=== PATIENT | female | born 1985 | race Two or more races ===

== ENCOUNTER 2017-10-09 07:06 | Day surgery (SDC) | payer OTHER ==
[~2017-10-09] VITALS: Ht 167.6 cm; Wt 72.6 kg
[2017-10-09] VITALS (13 sets, daily range): BP systolic 98–128; BP diastolic 54–76
[~2017-10-09 07:06] MED LIST: NKM; ceFAZolin 1gm in D5W 55ml IVP ONE; celeBREX 200mg Cap **SURGERY PATIENTS ONLY ORAL ONE; oxyCONTIN 20mg tab ORAL ONE
[2017-10-09] MEDS ORDERED: Kenalog-40 1ml Vial ONE (07:45)
[2017-10-09] MEDS ORDERED: Ketorolac 30mg Inj ONE ×2 (07:45→09:00)
[2017-10-09] MEDS ORDERED: Morphine Sulfate PF 10 ML ONE (07:45)
[2017-10-09] MEDS ORDERED: EPINEPHrine 1mg/1ml Amp ONE (07:46)
[2017-10-09] MEDS ORDERED: Bupivacaine 0.25% Inj 30ml INJ ONE (07:46)
[2017-10-09] MEDS ORDERED: Lidocaine 1% 10mg/ml/EPI 0.01mg/ml 50ml INJ ONE (07:46)
--- NOTE | 2017-10-09 08:29 | Pre-Procedure Note/Attestation ---
Pre-Procedure Note/Attestation Complete Prior to Procedure Planned Procedure: right Procedure Narrative: knee arthroscopy, possible synovectomy, possible menisectomy Indications for Procedure Pre-Operative Diagnosis: right knee internal derangement Attestation I attest that I discussed the nature of the procedure; its benefits; risks and complications; and alternatives (and the risks and benefits of such alternatives ), prior to the procedure, with the patient (or the patient's legal home furnishings sales representative). I attest that, if there was a reasonable possibility of needing a blood transfusion, the patient (or the patient's legal home furnishings sales representative) was given the [facility] standardized written summary, pursuant to the Azam Pari Blood Safety Act ([place] Health and Safety Code # 1645, as amended). I attest that I re-evaluated the patient just prior to the surgery and that there has been no change in the patient's H&P, except as documented below: UMM DIXON Oct 09, 2017 08:29
--- NOTE | 2017-10-09 08:30 | Operative Note - PDOC ---
Operative Note Operative Note Pre-op Diagnosis: right knee internal derangement Procedure: right knee arthroscopy, see op report Post-op Diagnosis: same as pre-op plus Operative Findings: consistent w/pre-op dx studies Anesthesia: MAC Specimen: none Complications: none Condition: stable Estimated Blood Loss: none Implant(s) used?: No UMM DIXON Oct 09, 2017 08:30
[2017-10-09] MEDS ORDERED: TransDerm Scop 1mg/72HR Patch TDERMAL ONE (08:55)
[2017-10-09] MEDS ORDERED: Propofol 200mg/20ml IV ONE (09:00)
[2017-10-09] MEDS ORDERED: Midazolam 2mg/2ml Inj ONE (09:00)
[2017-10-09] MEDS ORDERED: NS Irrig 1000ml ONE (09:00)
[2017-10-09] MEDS ORDERED: LR 1000ml ONE (09:00)
[2017-10-09] MEDS ORDERED: Sterile Water Irrig 1000ml IRRIG ONE (09:00)
[2017-10-09] MEDS ORDERED: NS Irrig 4000ml IRRIG ONE (09:00)
[2017-10-09] MEDS ORDERED: fentaNYL 100 mcg/2 mL IV ONE (09:00)
[2017-10-09] MEDS ORDERED: LR 1000ml 1,000 ML IVLG SCH (09:27)
--- NOTE | 2017-10-09 09:27 | Anethesia Preoperative Eval ---
Anesthesia Pre-op PMH/ROS General Date of Evaluation: Oct 09, 2017 Time of Evaluation: 08:48 Anesthesiologist: Eli ASA Score: ASA 2 Mallampati Score Class I : Soft palate, uvula, fauces, pillars visible Class II: Soft palate, uvula, fauces visible Class III: Soft palate, base of uvula visible Class IV: Only hard plate visible Mallampati Classification: Class II Surgeon: Pavan Diagnosis: R knee pain Surgical Procedure: R knee scope Anesthesia History: none Family History: no anesthesia problems Allergies: Coded Allergies: No Known Allergies (Unverified , 10/09/17) Medications: see eMAR Past Medical History Cardiovascular: Denies: HTN, CAD, [place], valve dz, arrhythmia, other Pulmonary: Denies: asthma, COPD, STEFFANIE, other Gastrointestinal/Genitourinary: Reports: GERD - mild, Denies: CRI, ESRD, other Neurologic/Psychiatric: Denies: dementia, CVA, depression/anxiety, TIA, other Endocrine: Denies: DM, hypothyroidism, steroids, other HEENT: Denies: cataract (L), cataract (R), glaucoma, [place]INIBO[place] AND [place] (L), ASSINIBOINE AND [place] (R), other Hematology/Immune: Denies: anemia, DVT, bleeding disorder, other Musculoskeletal/Integumentary: Denies: OA, RA, DJD, DDD, edema, other PMH Narrative: as above PSxH Narrative: Appendectomy Anesthesia Pre-op Phys. Exam Physician Exam Last Vital Signs Date Time Temp Pulse Resp B/P (MAP) Pulse Ox O2 Delivery O2 Flow Rate FiO2 10/09/17 07:39 97.9 90 16 118/63 98 Room Air Constitutional: NAD Neurologic: CN 2-12 intact Cardiovascular: RRR, no M/R/G Respiratory: CTA Gastrointestinal: S/NT/ND Airway Exam Mallampati Score: Class II MO: full Neck: flexible ROM: full Teeth: intact Dentures: no upper, no lower Anesthesia Pre-op A/P Labs see chart Urine Test Test 10/09/17 07:20 Urine HCG, Qualitative Negative Studies Pre-op Studies: EKG - NSR Risk Assessment & Plan Assessment: ASA 2 Plan: GA with LMA PONV prevention Status Change Before Surgery: No Pre-Antibiotics Drug: Ancef 1 gr Given Within 1 Hr of Incision: Yes Time Given: 09:10 ERI MATT M.D. Oct 09, 2017 09:27
[2017-10-09] MEDS ORDERED: Ketorolac 30mg Inj IV PRN (09:30)
[2017-10-09] MEDS ORDERED: Meperidine 50mg/ml Inj(FOR RIGORS ONLY) IV PRN ×2 (09:30)
[2017-10-09] MEDS ORDERED: DiphenhydrAMINE 50mg/ml Inj IVP PRN (09:30)
--- NOTE | 2017-10-09 09:50 | Immediate Post-Op Evaluation ---
Immediate Post-Op Evalulation Immediate Post-Op Evalulation Procedure: R knee arthroscopy meniscectomy Date of Evaluation: Oct 09, 2017 Time of Evaluation: 09:49 IV Fluids: 800 Blood Products: none Estimated Blood Loss: min` Urinary Output: none Blood Pressure Systolic: 110 Blood Pressure Diastolic: 61 Pulse Rate: 72 Respiratory Rate: 20 O2 Sat by Pulse Oximetry: 99 Temperature (Fahrenheit): 97.4 Pain Score (1-10): 1 Nausea: No Vomiting: No Complications none Patient Status: reacts, patent, none Hydration Status: adequate ERI MATT M.D. Oct 09, 2017 09:50
[2017-10-09] MEDS: Hydromorphone 0.5mg/0.5ml inj IVP PRN ×2 (10:16→10:27)
[2017-10-09] MEDS ORDERED: Duramorph PF 10mg/10ml amp EPIDUR ONE (10:16)
--- NOTE | 2017-10-09 11:34 | 48 Hour Post Anesthesia Eval ---
Post Anesthesia Evaluation Procedure: R knee arthroscopy meniscectomy Date of Evaluation: Oct 09, 2017 Time of Evaluation: 11:32 Blood Pressure Systolic: 112 0: 54 Pulse Rate: 78 Respiratory Rate: 20 Temperature (Fahrenheit): 97.6 O2 Sat by Pulse Oximetry: 98 Airway: patent Nausea: No Vomiting: No Pain Intensity: 2 Hydration Status: adequate Cardiopulmonary Status: stable Mental Status/LOC: patient returned to baseline Follow-up Care/Observations: n/a Post-Anesthesia Complications: none Follow-up care needed: ready to discharge ERI MATT M.D. Oct 09, 2017 11:34
--- NOTE | 2017-10-09 15:30 | Operative Note - Dictated ---
DATE OF OPERATION: 10/09/2017 PREOPERATIVE DIAGNOSIS: Internal derangement, right knee. POSTOPERATIVE DIAGNOSES: 1. Hypertrophic synovial tissue, lateral and patellofemoral compartments. 2. Grade 2 chondral damage, medial patellar facet. PROCEDURE: 1. Right knee diagnostic arthroscopy, synovectomy, lateral and patellofemoral compartments. 2. A gentle chondroplasty of the patellofemoral compartment. SURGEON: Nicola Browne M.D. ANESTHESIA: MAC. INDICATION FOR PROCEDURE: The patient is a pleasant female with chronic right knee pain. After failing conservative treatment, she elected to undergo diagnostic arthroscopy. I discussed with the patient and based on the intraoperative findings, appropriate treatment will be performed. No guarantees regarding the outcomes were provided to the patient. It will be dependent on what the intraoperative findings are as well as her postop rehabilitation. DESCRIPTION OF PROCEDURE: After informed consent was obtained, the patient was brought to the operating room and placed supine under monitored anesthesia control. Right leg was prepped and draped in a sterile manner. Time-out was performed. A 0.25% Marcaine injected into the right knee. Portal sites injected with 1% lidocaine with epinephrine. Inferolateral stab incision was then made. Trocar was introduced into the patellofemoral compartment. There was significant resistance while going to the lateral gutter. Once the camera was positioned in the patellofemoral compartment, visualization of the trochlear groove was difficult secondary to the hypertrophic fat pad. Medial gutter was free of any loose bodies. Medial compartment was entered. Medial working portal was established. The meniscus was probed and free of any meniscal chondral damage of the medial compartment. There was some hypertrophic synovial tissue in the anterior compartment and medial compartment, which was debrided to better visualize the anterior horn. Synovectomy was extended into intercondylar notch and lateral compartment. Once that was completed, the ACL was probed, noted to be intact. Lateral compartment was entered, free of any meniscal chondral damage. At this point, the camera was repositioned in the patellofemoral compartment. Synovectomy of the retropatellar space was performed to better visualize the trochlear groove. Once that was done, there was an area of grade 2 chondral damage of the medial patellar facet. Gentle chondroplasty was performed. At this point, the instruments were removed. Portal sites were closed using 3-0 Monocryl sutures. Steri-Strips and a sterile dressing were applied. The patient was awoken and taken to recovery room with stable vital signs. ESTIMATED BLOOD LOSS: None. COMPLICATIONS: None. SPECIMENS: None. Nicola Browne M.D. DR: SYLVIA JOB#: [id number] CC:
[2017-10-09] MEDS ORDERED: D5 1/2NS 1,000 ML IV SCH (16:01)
[2017-10-09] MEDS ORDERED: Norco 5mg/325mg tab ORAL PRN (16:01)
[2017-10-09] MEDS ORDERED: HYDROmorphone 1mg/ml Carpuject SUBQ PRN (16:01)
[2017-10-09] MEDS ORDERED: Tylenol #3 tab (300mg/30mg) ORAL PRN (16:01)
--- NOTE | 2017-10-09 18:30 | Operative Note - Dictated ---
DATE OF OPERATION: 10/09/2017 PREOPERATIVE DIAGNOSIS: Left knee medial meniscus tear. POSTOPERATIVE DIAGNOSES: 1. Left knee medial meniscus tear. 2. Hypertrophic synovial tissue, medial, lateral, and patellofemoral compartments. PROCEDURES: 1. Left knee arthroscopic partial medial meniscectomy. 2. Synovectomy, medial, lateral, and patellofemoral compartments. SURGEON: Nicola Browne M.D. ANESTHESIA: MAC. INDICATION FOR PROCEDURE: The patient is a pleasant female, who had significant pain in the knee. She had an MRI, which showed tear of the posterior horn of the medial meniscus. She failed conservative treatment, elected to undergo left knee arthroscopic medial meniscectomy. Risks, limitations, expectations, and complications of procedure were discussed in detail. All questions addressed. DESCRIPTION OF PROCEDURE: After informed consent was obtained, the patient was brought to the operative room. The patient was placed under monitored anesthesia control. Tourniquet was applied on the left proximal thigh. Left leg was prepped and draped in a sterile manner. A 0.25% Marcaine plain WAS injected into the left knee. The portal sites were injected with 1% lidocaine with epinephrine. Esmarch was used to exsanguinate the extremity. Inferolateral stab incision was then made. Trocar was then introduced in to the knee joint. There was hypertrophic synovial tissue in the retropatellar space area. Medial gutter was free of any loose bodies. Anterior compartment was entered. Complex tear of the posterior horn of the medial meniscus. Partial medial meniscectomy was performed. Synovectomy of the anterior portion, medial compartment, intercondylar notch, lateral compartment was performed. Now the ACL was probed, noted to be intact. Lateral compartment was entered, free of any meniscal chondral damage. Camera was repositioned in the patellofemoral compartment. Synovectomy of the retropatellar fat pad area was completed. Instruments were removed. Portal sites were closed with 3-0 Monocryl sutures. The patient was awoken and taken to the recovery room with stable vital signs. ESTIMATED BLOOD LOSS: None. COMPLICATIONS: None. SPECIMENS: None. Nicola Browne M.D. DR: SYLVIA JOB#: [id number] CC: AMEE
== END 2017-10-09 13:20 | disposition home or self-care (01) ==
LOC: SUR 07:06
DX: S83.242A Other tear of medial meniscus, current injury, left knee, initial encounter (principal); M67.262 Synovial hypertrophy, not elsewhere classified, left lower leg; M23.91 Unspecified internal derangement of right knee; S89.82XA Other specified injuries of left lower leg, initial encounter; W01.0XXA Fall on same level from slipping, tripping and stumbling without subsequent striking against object, initial encounter; Y93.9 Activity, unspecified; Y92.9 Unspecified place or not applicable; K21.9 Gastro-esophageal reflux disease without esophagitis; Z90.89 Acquired absence of other organs
CPT/HCPCS: 29876; 29881; 81025; 97161; J0171; J0690; J1170; J1885; J2175; J2250; J2274; J2405; J2704; J3010; J3301; J3490; J7120; 94003; 94150